=== PATIENT | male | born 1935 | race Caucasian/White ===

== ENCOUNTER 2016-03-24 10:02 | Inpatient (IN) | payer MEDICARE ==
[2016-03-24] VITALS (11 sets, daily range): BP systolic 115–151; BP diastolic 55–86; PULSE 70–94; RESP 7–12; TEMP 97.6–98.2; O2SAT 94–100
[~2016-03-24 10:02] MED LIST: NOREPINEPHRINE 4 MG/4 ML AMP IV ONE
[2016-03-24] MEDS ORDERED: ROCURONIUM INJ 50 MG/5 ML VIAL ONE (10:22)
[2016-03-24 10:25] LABS: I-STAT POTASSIUM 3.9 MMOL/L (3.5-4.9)
[2016-03-24 10:27] LABS: AUTOMATED NEUTROPHIL # 3.4 TH/MM3 (1.8-7.7); BASOPHIL % 0.5 % (0.0-2.0); EOSINOPHIL # 0.2 TH/MM3 (0-0.4); HEMATOCRIT 35.5 % (39.0-51.0); HEMO FLAGS DIFF FINAL; LYMPH % 37.2 % (9.0-44.0); LYMPHOCYTE # 2.5 TH/MM3 (1.0-4.8); MEAN CELL VOLUME 91.1 FL (80.0-100.0); MEAN CORPUSCULAR HEMOGLOBIN 30.7 PG (27.0-34.0); MEAN CORPUSCULAR HGB CONC 33.7 % (32.0-36.0); MONO % 9.7 % (0.0-8.0); NEUT % 49.6 % (16.0-70.0); PLATELET COUNT 163 TH/MM3 (150-450); RED CELL DISTRIBUTION WIDTH 13.1 % (11.6-17.2); WHITE BLOOD COUNT 6.8 TH/MM3 (4.0-11.0)
[2016-03-24] MEDS ORDERED: SODIUM CHLOR 0.9% 250 ML INJ 250 ML IV ONE (10:30)
[2016-03-24] MEDS ORDERED: NORMOSOL R INJ 3,000 ML IV ONE (10:30)
[2016-03-24] MEDS ORDERED: SODIUM BICARBONATE 8.4% INJ 50 MEQ/50 ML SYR IV ONE (10:30)
[2016-03-24] MEDS ORDERED: CALCIUM CHLORIDE 10% SOLN 1 GRAM/10 ML SYR IV ONE (10:30)
[2016-03-24] MEDS ORDERED: HEPARIN SODIUM - IV 10,000 UNITS/10 ML VIAL IVF ONE (10:30)
[2016-03-24] MEDS ORDERED: PHENYLEPH/NS 1000 MCG/10 ML SYR IV ONE (10:30)
[2016-03-24] MEDS ORDERED: SODIUM CHLOR 0.9% 1000 ML INJ 1,000 ML IV ONE (10:30)
--- NOTE | 2016-03-24 10:39 | RADRPT ---
EXAM DATE/TIME: 03/24/2016 10:00 [facility] COMPARISON: No previous studies available for comparison. INDICATIONS : trauma alert, fall while moving a mirror. MEDICAL HISTORY : None. SURGICAL HISTORY : None. ENCOUNTER: Initial ACUITY: 1 day PAIN SCORE: Non-responsive. LOCATION: Right pelvis. FINDINGS: A single frontal view of the pelvis demonstrates no evidence of fracture. Motion artifact limits the exam. Single view of the right femur and hip demonstrate no evidence of fracture. The bony pelvic ri ng is intact. Bony mineralization is normal. The soft tissues are intact. CONCLUSION: No fracture visualized. The frontal view of the pelvis is limited with motion artifact.. Val Wallace MD on March 24, 2016 at 10:36 Board Certified Radiologist. This report was verified electronically.
--- NOTE | 2016-03-24 10:39 | RADRPT ---
EXAM DATE/TIME: 03/24/2016 10:00 [facility] COMPARISON: No previous studies available for comparison. INDICATIONS : Trauma alert, fall when moving a mirror. MEDICAL HISTORY : None. SURGICAL HISTORY : None. ENCOUNTER: Initial ACUITY: 1 day PAIN SCORE: Non-responsive. LOCATION: Bilateral chest FINDINGS: A single view of the chest demonstrates the lungs to be symmetrically aerated without evidence of mas s, infiltrate or effusion. The cardiomediastinal contours are unremarkable. Osseous structures are intact. CONCLUSION: No acute disease. Val Wallace MD on March 24, 2016 at 10:38 Board Certified Radiologist. This report was verified electronically.
--- NOTE | 2016-03-24 10:44 | RADRPT ---
EXAM DATE/TIME: 03/24/2016 10:15 [facility] COMPARISON: None. INDICATIONS : Trauma alert. Post intubation. MEDICAL HISTORY : None. SURGICAL HISTORY : None. ENCOUNTER: Initial ACUITY: 1 day PAIN SCORE: Non-responsive. LOCATION: Bilateral chest FINDINGS: The endotracheal tube has its tip approximately 2 cm above the maxx. The heart is mildly prominent. The pulmonary vascular pattern is normal. The lungs are clear. CONCLUSION: Endotracheal tube 2 cm above the maxx in good position. Cardiomegaly. No acute focal pulmonary infi ltrate or pulmonary vascular congestion. Jose Polanco MD on March 24, 2016 at 10:41 Board Certified Radiologist. This report was verified electronically.
[2016-03-24 10:54] LABS: APTT (PATIENT) 23.9 SEC (24.3-30.1); INTERNATIONAL NORMALIZED RATIO 1.1 RATIO; PROTHROMBIN TIME - PATIENT 11.7 SEC (9.8-11.6)
--- NOTE | 2016-03-24 11:01 | RADRPT ---
EXAM DATE/TIME: 03/24/2016 00:00 [facility] COMPARISON: No previous studies available for comparison. INDICATIONS: Trauma alert. Right femur laceration from glass mirror. MEDICAL HISTORY: None. SURGICAL HISTORY: None. ENCOUNTER: Initial ACUITY: 1 day PAIN SCORE: Non-responsive. LOCATION: Right proximal femur. FINDINGS: No acute fracture or dislocation. Mild degenerative changes are noted involving the right hip joint. CONCLUSION: 1. No acute fracture or dislocation. 2. Mild degenerative changes involving the right hip joint. Jose Polanco MD on March 24, 2016 at 10:43 Board Certified Radiologist. This report was verified electronically.
[2016-03-24 11:07] LABS: BLOOD GAS BASE EXCESS -12.5 mmol/L (-2-2); BLOOD GAS CARBOXYHEMOGLOBIN 0.6 % (0-4); BLOOD GAS HCO3 16 mmol/L (22-26); BLOOD GAS METHEMOGLOBIN 1.1 % (0-2); BLOOD GAS O2 HGB SATURATION 97 % (90-100); BLOOD GAS PCO2 57 mmHg (38-42); BLOOD GAS PO2 237 mmHg (61-120); BLOOD GAS TOTAL HGB 13.5 G/DL (12.0-16.0); TEMP CORR TO 98.6
[2016-03-24 11:08] LABS: CRITICAL VALUE YES; OXYGEN DEVICE VENTILATOR
[2016-03-24 11:09] LABS: DRAW SITE ART LINE; FIO2 100 %; STAT YES
--- NOTE | 2016-03-24 11:12 | PD ---
HPI Chief Complaint: Trauma (Alert) Time Seen by Provider: 10:33 Travel History International Travel<30 days: No Contact w/Intl Traveler<30days: No Traveled to known affect area: No History of Present Illness HPI 88-year-old male presents to the ER as a trauma alert, apparently had fallen on an old mirror, has a laceration to his right thigh area with about a liter of blood on the floor according to EMS. His initial blood pressure was 50/30, they gave him IV fluids and put a tourniquet, and his blood pressure came up to 120 systolic according to them. He is awake, alert, and oriented on initial arrival to the ER. He was able to give us a history. Massive transfusion protocol was initiated when the patient got into the ER. However, while being evaluated in the trauma room, the patient becomes disoriented and then unresponsive, pulses were not felt, and CPR was initiated in the ER with one dose of epi and after one round returns to spontaneous circulation. Patient was intubated by me in the ER. He is then taken to the OR by trauma surgeon. Review of Systems ROS Limitations: Intubated, Altered Mental Status Physical Exam Narrative GENERAL: Well-nourished, well-developed elderly white male patient who is cool and clammy, but initially awake and oriented and GCS 15. SKIN: Warm and dry. HEAD: Normocephalic. EYES: No scleral icterus. No injection or drainage. NECK: Supple, trachea midline. CARDIOVASCULAR: . Regular rate and rhythm without murmurs, gallops, or rubs. RESPIRATORY: Breath sounds equal bilaterally with mild intermittent wheezes. No accessory muscle use. GASTROINTESTINAL: Abdomen soft, non-tender, nondistended. MUSCULOSKELETAL: No cyanosis, or edema. BACK: Nontender without obvious deformity. No CVA tenderness. Right leg: There is a 3 cm laceration which is fairly deep with bleeding once tourniquet was removed. Pulses are present. Data Data Orders I-Stat Profile (03/24/16 10:04) I-Stat Creatinine (03/24/16 10:04) Complete Blood Count With Diff (03/24/16 10:04) Prothrombin Time / Inr (Pt) (03/24/16 10:04) Act Partial Throm Time (Ptt) (03/24/16 10:04) Type And Screen (03/24/16 10:04) Chest, Single Ap (03/24/16 10:04) Pelvis, Ap Only (Routine) (03/24/16 10:04) Iv Access Insert/Monitor (03/24/16 10:04) Ecg Monitoring (03/24/16 10:04) Oximetry (03/24/16 10:04) Oxygen Administration (03/24/16 10:04) Rocuronium Inj (Zemuron Inj) (03/24/16 10:22) Red Blood Cells (Rbc) (03/24/16 10:10) Fentanyl Inj (Fentanyl Inj) (03/24/16 10:27) Fresh Frozen Plasma (Ffp) (03/24/16 10:27) Admit Order (Ed Use Only) (03/24/16 10:33) Red Blood Cells (Rbc) (03/24/16 10:10) Labs Laboratory Tests Test 03/24/16 10:10 White Blood Count 6.8 TH/MM3 Red Blood Count 3.90 MIL/MM3 Hemoglobin 12.0 GM/DL Bedside Hemoglobin 11.2 G/DL Hematocrit 35.5 % Bedside Hematocrit 33.0 % Mean Corpuscular Volume 91.1 FL Mean Corpuscular Hemoglobin 30.7 PG Mean Corpuscular Hemoglobin 33.7 % Concent Red Cell Distribution Width 13.1 % Platelet Count 163 TH/MM3 Mean Platelet Volume 8.0 FL Neutrophils (%) (Auto) 49.6 % Lymphocytes (%) (Auto) 37.2 % Monocytes (%) (Auto) 9.7 % Eosinophils (%) (Auto) 3.0 % Basophils (%) (Auto) 0.5 % Neutrophils # (Auto) 3.4 TH/MM3 Lymphocytes # (Auto) 2.5 TH/MM3 Monocytes # (Auto) 0.7 TH/MM3 Eosinophils # (Auto) 0.2 TH/MM3 Basophils # (Auto) 0.0 TH/MM3 CBC Comment DIFF FINAL Differential Comment Prothrombin Time 11.7 SEC Prothromb Time International 1.1 RATIO Ratio Activated Partial 23.9 SEC Thromboplast Time Bedside Sodium 142 MMOL/L Bedside Potassium 3.9 MMOL/L Bedside Chloride 109 MMOL/L Bedside Blood Urea Nitrogen 24 MG/DL Bedside Creatinine 1.2 MG/DL Bedside Glucose 182 MG/DL Blood Type B NEGATIVE Antibody Screen NEGATIVE Crossmatch Leukocyte-Reduced Red Blood Cells Blood Bank Comment MDM Medical Screen Exam Complete: Yes Emergency Medical Condition: Yes Medical Record Reviewed: Yes EKG Prior to Arrival: No Interpretation(s) Laboratory Tests Test 03/24/16 10:10 Red Blood Count 3.90 MIL/MM3 (4.50-5.90) Hemoglobin 12.0 GM/DL (13.0-17.0) Bedside Hemoglobin 11.2 G/DL (12.0-17.0) Hematocrit 35.5 % (39.0-51.0) Bedside Hematocrit 33.0 % (38.0-51.0) Monocytes (%) (Auto) 9.7 % (0.0-8.0) Prothrombin Time 11.7 SEC (9.8-11.6) Activated Partial 23.9 SEC Thromboplast Time (24.3-30.1) Bedside Glucose 182 MG/DL (60-95) Last 24 hours Impressions Pelvis X-Ray 03/24/16 1004 Signed Impressions: Service Date/Time: Thursday, March 24, 2016 10:00 - CONCLUSION: No fracture visualized. The frontal view of the pelvis is limited with motion artifact.. Val Wallace MD Chest X-Ray 03/24/16 1004 Signed Impressions: Service Date/Time: Thursday, March 24, 2016 10:00 - CONCLUSION: No acute disease. Val Wallace MD Chest X-Ray 03/24/16 0000 Signed Impressions: Service Date/Time: Thursday, March 24, 2016 10:15 - CONCLUSION: Endotracheal tube 2 cm above the maxx in good position. Cardiomegaly. No acute focal pulmonary infiltrate or pulmonary vascular congestion. Jose Polanco MD Differential Diagnosis Trauma/severe right leg laceration/PEA code/hypovolemic shock Narrative Course Patient is admitted to trauma service to the ICU, taken to the OR by trauma surgeon. Procedures Procedure Narrative The patient was put in optimal position for the procedure. Rapid sequence intubation was initiated by me using 20 milligrams of etomidate IV and 100 milligrams of succinylcholine] IV. The patient was intubated with a 8.0 cuffed endotracheal tube. Tube placement was confirmed by visualization of the tube and balloon passing through the cords, capnometry and subsequent chest x-ray. Breath sounds were equal and well aerated bilaterally postintubation. No breath sounds over stomach. Patient tolerated procedure well. Trauma Alert - Level One Trauma Alert Level One: Full trauma team activate, Patient evaluated, Trauma surgeon summoned Time Surgeon Summoned: 09:28 (Surgeon asked to come in) Diagnosis Diagnosis: Primary Impression: LACERATION WITHOUT FOREIGN BODY, RIGHT THIGH, INIT ENCNTR Additional Impression: Endotracheally intubated Admitting Physician Requests: Admit Stefan Osman MD Mar 24, 2016 11:12
[2016-03-24 11:27] LABS: BLOOD GAS BASE EXCESS -4.7 mmol/L (-2-2); BLOOD GAS CARBOXYHEMOGLOBIN 1.3 % (0-4); BLOOD GAS HCO3 20 mmol/L (22-26); BLOOD GAS METHEMOGLOBIN 1.2 % (0-2); BLOOD GAS O2 HGB SATURATION 97 % (90-100); BLOOD GAS PCO2 39 mmHg (38-42); BLOOD GAS PO2 283 mmHg (61-120); CRITICAL VALUE NO; OXYGEN DEVICE VENTILATOR; TEMP CORR TO 98.6
[2016-03-24 11:28] LABS: DRAW SITE ART LINE; FIO2 100 %; STAT YES
[2016-03-24 12:23] LABS: BLOOD GAS BASE EXCESS -0.3 mmol/L (-2-2); BLOOD GAS CARBOXYHEMOGLOBIN 1.4 % (0-4); BLOOD GAS HCO3 24 mmol/L (22-26); BLOOD GAS METHEMOGLOBIN 1.2 % (0-2); BLOOD GAS O2 HGB SATURATION 97 % (90-100); BLOOD GAS OXYGEN CONTENT 15.1 Vol % (12.0-20.0); BLOOD GAS PCO2 44 mmHg (38-42); BLOOD GAS PO2 270 mmHg (61-120); BLOOD GAS TOTAL HGB 10.6 G/DL (12.0-16.0); CRITICAL VALUE NO; OXYGEN DEVICE VENTILATOR; TEMP CORR TO 98.6
[2016-03-24 12:24] LABS: DRAW SITE ART LINE; FIO2 100 %; STAT YES
[2016-03-24] MEDS ORDERED: MISCELLANEOUS NURSING INFORMATION XX SCH (12:30)
[2016-03-24] MEDS ORDERED: CHLORHEXIDINE GLUCONATE 2 % 1 PACK (2 CLOTHS) TOP PRN (12:30)
[2016-03-24] MEDS ORDERED: fentaNYL DRIP 250 ML IV SCH (12:30)
[2016-03-24] MEDS ORDERED: SODIUM CHLORIDE 0.9% FLUSH 5 ML FLUSH IV FLUSH PRN (12:30)
--- NOTE | 2016-03-24 12:55 | HHI.HP ---
History of Present Illness Primary Care Physician Admission Diagnosis trauma alert/right leg severe lacerations/severe anemia Diagnoses: History of Present Illness 88 -year-old male fell on a broken mirror sustained an open wound of his right thigh. There was large amount of bleeding according to EMS about 1 L. She was hypotensive at the scene responded to go to IV fluids. He presented to the trauma bay awake alert= the initial stable blood pressure. Rapid transfusion was started , patient started becoming labile orotracheal intubation was started. Patient had a short code required 1 Amp epinephrine and short CPR. Patient was then stabilized with massive transfusion ongoing-and brought to the OR vascular exploration. Review of Systems ROS Limitations: Intubated, Altered Mental Status, Unresponsive Past Family Social History Allergies: Coded Allergies: UNOBTAINABLE (Unverified , 03/24/16) Past Medical History Cannot be obtained Past Surgical History Cannot be obtained Reported Medications Cannot be obtained Active Ordered Medications Cannot be obtained Family History Not be obtained Social History Not be obtained Physical Exam Vital Signs Vital Signs Date Time Temp Pulse Resp B/P Pulse Ox O2 Delivery O2 Flow Rate FiO2 03/24/16 10:47 100 100 Physical Exam GENERAL: This is a well-nourished, well-developed patient, in severe distress SKIN: No rashes, ecchymoses or lesions. Cool and dry. HEAD: Atraumatic. Normocephalic. No temporal or scalp tenderness. EYES: Pupils equal round and reactive. Extraocular motions intact. No scleral icterus. No injection or drainage. ENT: Nose without bleeding, purulent drainage or septal hematoma. Throat without erythema, tonsillar hypertrophy or exudate. Uvula midline. Airway patent. NECK: Trachea midline. No JVD or lymphadenopathy. Supple, nontender, no meningeal signs. CARDIOVASCULAR: Regular rate and rhythm without murmurs, gallops, or rubs. RESPIRATORY: Clear to auscultation. Breath sounds equal bilaterally. No wheezes , rales, or rhonchi. GASTROINTESTINAL: Abdomen soft, non-tender, nondistended. No hepato-splenomegaly , or palpable masses. No guarding. MUSCULOSKELETAL: b/l DP pulses palpable-right thigh midportion large wound size 85 cm with heavy bleeding NEUROLOGICAL: Awake and alert. Cranial nerves II through XII intact. Motor and sensory grossly within normal limits. Five out of 5 muscle strength in all muscle groups. Normal speech. Laboratory Laboratory Tests Test 03/24/16 03/24/16 03/24/16 03/24/16 10:10 10:27 10:57 11:17 White Blood Count 6.8 Red Blood Count 3.90 Hemoglobin 12.0 Bedside Hemoglobin 11.2 Hematocrit 35.5 Bedside Hematocrit 33.0 Mean Corpuscular Volume 91.1 Mean Corpuscular Hemoglobin 30.7 Mean Corpuscular Hemoglobin 33.7 Concent Red Cell Distribution Width 13.1 Platelet Count 163 Mean Platelet Volume 8.0 Neutrophils (%) (Auto) 49.6 Lymphocytes (%) (Auto) 37.2 Monocytes (%) (Auto) 9.7 Eosinophils (%) (Auto) 3.0 Basophils (%) (Auto) 0.5 Neutrophils # (Auto) 3.4 Lymphocytes # (Auto) 2.5 Monocytes # (Auto) 0.7 Eosinophils # (Auto) 0.2 Basophils # (Auto) 0.0 CBC Comment DIFF FINAL Differential Comment Prothrombin Time 11.7 Prothromb Time International 1.1 Ratio Activated Partial 23.9 Thromboplast Time Bedside Sodium 142 Bedside Potassium 3.9 Bedside Chloride 109 Bedside Blood Urea Nitrogen 24 Bedside Creatinine 1.2 Bedside Glucose 182 Blood Type B NEGATIVE Antibody Screen NEGATIVE Crossmatch Leukocyte-Reduced Red Blood Cells Blood Bank Comment Blood Gas Puncture Site ART LINE ART LINE Blood Gas Patient Temperature 98.6 98.6 Blood Gas HCO3 16 20 Blood Gas Base Excess -12.5 -4.7 Blood Gas Oxygen Saturation 97 97 Arterial Blood pH 7.08 7.33 Arterial Blood Partial 57 39 Pressure CO2 Arterial Blood Partial 237 283 Pressure O2 Arterial Blood Oxygen Content 19.0 13.0 Arterial Blood 0.6 1.3 Carboxyhemoglobin Arterial Blood Methemoglobin 1.1 1.2 Blood Gas Hemoglobin 13.5 9.0 Oxygen Delivery Device VENTILATOR VENTILATOR Blood Gas Ventilator Setting UNKNOWN UNKNOWN Blood Gas Inspired Oxygen 100 100 Test 03/24/16 12:13 Blood Gas Puncture Site ART LINE Blood Gas Patient Temperature 98.6 Blood Gas HCO3 24 Blood Gas Base Excess -0.3 Blood Gas Oxygen Saturation 97 Arterial Blood pH 7.36 Arterial Blood Partial 44 Pressure CO2 Arterial Blood Partial 270 Pressure O2 Arterial Blood Oxygen Content 15.1 Arterial Blood 1.4 Carboxyhemoglobin Arterial Blood Methemoglobin 1.2 Blood Gas Hemoglobin 10.6 Oxygen Delivery Device VENTILATOR Blood Gas Ventilator Setting UNKNOWN Blood Gas Inspired Oxygen 100 Result Diagram: 03/24/16 1010 Imaging No femur fracture-femur xray Course hemorrhagic shock Assessment and Plan Assessment and Plan Hemorrhagic shock Large open wound with heavy bleeding right thigh Orotracheal intubation Massive transfusion Tourniquet Or for exploration Reva Bess MD Mar 24, 2016 12:55
[2016-03-24] MEDS: PROPOFOL 1000 MG/100 ML INJ 100 ML IV SCH ×2 (13:30→21:55)
[2016-03-24] MEDS: SODIUM CHLOR 0.9% 1000 ML INJ 1,000 ML IV SCH ×2 (13:30→22:51)
--- NOTE | 2016-03-24 13:32 | RADRPT ---
EXAM DATE/TIME: 03/24/2016 11:58 [facility] COMPARISON: CHEST SINGLE AP, March 24, 2016, 10:15. INDICATIONS : Instrument count in OR. MEDICAL HISTORY : None. SURGICAL HISTORY : None. ENCOUNTER: Initial ACUITY: 1 day PAIN SCORE: Non-responsive. LOCATION: Right middle femur FINDINGS: One view examination of the right femur demonstrates no evidence of fracture or dislocation. Bony mi neralization is normal. There is a drain overlying the right femur. No evidence of for change or body . Surgical clips within the medial soft tissues. CONCLUSION: No evidence of retained foreign body. Surgical drain overlying the right thigh. Val Wallace MD on March 24, 2016 at 13:30 Board Certified Radiologist. This report was verified electronically.
[2016-03-24] MEDS ORDERED: MIDAZOLAM HCL 2 MG/2 ML VIAL ONE (13:33)
[2016-03-24 13:46] LABS: BLOOD GAS BASE EXCESS -1.5 mmol/L (-2-2); BLOOD GAS CARBOXYHEMOGLOBIN 1.1 % (0-4); BLOOD GAS HCO3 22 mmol/L (22-26); BLOOD GAS METHEMOGLOBIN 1.9 % (0-2); BLOOD GAS O2 HGB SATURATION 95 % (90-100); BLOOD GAS OXYGEN CONTENT 14.3 Vol % (12.0-20.0); BLOOD GAS PCO2 35 mmHg (38-42); BLOOD GAS PO2 166 mmHg (61-120); BLOOD GAS TOTAL HGB 10.5 G/DL (12.0-16.0); CRITICAL VALUE NO; DRAW SITE ART LINE; FIO2 40 %; OXYGEN DEVICE VENTILATOR; STAT YES; TEMP CORR TO 98.6; VENT SETTINGS CPAP +5PPEP/10PSV
--- NOTE | 2016-03-24 13:52 | RADRPT ---
EXAM DATE/TIME: 03/24/2016 13:28 [facility] COMPARISON: CHEST SINGLE AP, March 24, 2016, 10:15. FEMUR RIGHT (1 VW), March 24, 2016, 11:58. INDICATIONS : Central line placement. MEDICAL HISTORY : None. SURGICAL HISTORY : None. ENCOUNTER: Initial ACUITY: 1 day PAIN SCORE: Non-responsive. LOCATION: Bilateral chest FINDINGS: AP supine portable views of the chest demonstrate endotracheal tube with the tip at the level of the clavicles, approximately 5.6 cm above the level of the maxx. Gastric tubing extending to just below the level of the GE junction. Recommend interval advancement. The lungs are clear. Heart size is normal. Osseous structures appear grossly unremarkable. CONCLUSION: Lines and tubes as noted above. Lungs are clear without evidence of pneumothorax.. Val Wallace MD on March 24, 2016 at 13:49 Board Certified Radiologist. This report was verified electronically.
[2016-03-24] MEDS ORDERED: DO NOT ADM ANY ANTICOAGULANT DRUGS XX PRN (14:00)
[2016-03-24 17:45] LABS: BLOOD GAS BASE EXCESS 0.3 mmol/L (-2-2); BLOOD GAS CARBOXYHEMOGLOBIN 1.8 % (0-4); BLOOD GAS HCO3 23 mmol/L (22-26); BLOOD GAS METHEMOGLOBIN 0.9 % (0-2); BLOOD GAS O2 HGB SATURATION 95 % (90-100); BLOOD GAS OXYGEN CONTENT 14.4 Vol % (12.0-20.0); BLOOD GAS PCO2 32 mmHg (38-42); BLOOD GAS PO2 83 mmHg (61-120); BLOOD GAS TOTAL HGB 10.8 G/DL (12.0-16.0); CRITICAL VALUE NO; DRAW SITE LT BRACHIAL; FIO2 21 %; NUMBER OF ARTERIAL PUNCTURES 1; OXYGEN DEVICE ROOM AIR; STAT NO; TEMP CORR TO 98.6
[2016-03-24] MEDS: CLINDAMYCIN INJ 600 MG in SODIUM CHLORIDE 0.9% INJ 100 ML IV SCH (20:00)
[2016-03-24] MEDS: SODIUM CHLORIDE 0.9% FLUSH 5 ML FLUSH IV FLUSH SCH (21:00)
[2016-03-24] MEDS: FAMOTIDINE 20 MG/2 ML VIAL IV PUSH SCH (21:00)
[2016-03-24 23:20] LABS: HEMATOCRIT 31.5 % (39.0-51.0)
[2016-03-24 23:21] LABS: REVIEW FLAG FINAL
--- NOTE | 2016-03-24 23:36 | PD.CONS ---
HPI Service Critical Care Medicine Consult Requested By Trauma Service Reason for Consult Respiratory Failure Primary Care Physician History of Present Illness Elderly man fell on mirror receiving severe laceration to his right superficial femoral vein and artery branches. He required a massive transfusion protocol, receiving 9 units PRBCs, 6 FFP, and commensurate amounts of cryoprecipitate and platelets. Unable to wean ventilator postoperatively as he has been resuscitated from the shock state. He arrived in profound shock and sustained a brief PEA arrest in ED from which he was rapidly resuscitated. Past Family Social History Allergies: Coded Allergies: UNOBTAINABLE (Unverified , 03/24/16) Physical Exam Vital Signs Vital Signs Date Time Temp Pulse Resp B/P Pulse Ox O2 Delivery O2 Flow Rate FiO2 03/24/16 20:28 99 40 03/24/16 18:00 100 Mechanical Ventilator 40 03/24/16 18:00 03/24/16 18:00 70 03/24/16 16:21 100 40 03/24/16 16:00 97.6 80 12 119/58 100 03/24/16 16:00 100 Mechanical Ventilator 40 03/24/16 16:00 80 03/24/16 14:37 98 40 03/24/16 14:30 100 Mechanical Ventilator 40 03/24/16 14:30 100 100 03/24/16 14:30 97.6 82 7 151/86 100 03/24/16 14:30 94 03/24/16 14:00 97.4 90 6 135/72 99 Mechanical Ventilator 03/24/16 13:45 92 8 146/62 98 Mechanical Ventilator 03/24/16 13:30 89 6 116/70 99 Mechanical Ventilator 03/24/16 13:15 90 6 106/68 99 Mechanical Ventilator 03/24/16 13:05 96.3 91 6 91/55 96 Ambu Bag 03/24/16 13:00 94 40 03/24/16 10:47 100 100 Physical Exam PE: Gen: Sedated on mechanical ventilation. Head: Laceration to bridge of nose, dry, clean. Neck: Supple, orally intubated. Lungs: Few scattered rhonchi, good cesario air entry. Heart: NL S1S2, RRR. No JVD. Abdomen: Benign, sift. BS active. Nondistended. Extremities: Dry dressing right thigh. Right foot is warm and toes are well perfused. 1+ edema. Other 3 limbs well perfused. Neuro: Opens eyes to loud voice.Moves 4 limbs spontaneously. Laboratory Laboratory Tests Test 03/24/16 03/24/16 03/24/16 03/24/16 09:40 10:10 10:27 10:57 Blood Bank Comment White Blood Count 6.8 Red Blood Count 3.90 Hemoglobin 12.0 Bedside Hemoglobin 11.2 Hematocrit 35.5 Bedside Hematocrit 33.0 Mean Corpuscular Volume 91.1 Mean Corpuscular Hemoglobin 30.7 Mean Corpuscular Hemoglobin 33.7 Concent Red Cell Distribution Width 13.1 Platelet Count 163 Mean Platelet Volume 8.0 Neutrophils (%) (Auto) 49.6 Lymphocytes (%) (Auto) 37.2 Monocytes (%) (Auto) 9.7 Eosinophils (%) (Auto) 3.0 Basophils (%) (Auto) 0.5 Neutrophils # (Auto) 3.4 Lymphocytes # (Auto) 2.5 Monocytes # (Auto) 0.7 Eosinophils # (Auto) 0.2 Basophils # (Auto) 0.0 CBC Comment DIFF FINAL Differential Comment Prothrombin Time 11.7 Prothromb Time International 1.1 Ratio Activated Partial 23.9 Thromboplast Time Bedside Sodium 142 Bedside Potassium 3.9 Bedside Chloride 109 Bedside Blood Urea Nitrogen 24 Bedside Creatinine 1.2 Bedside Glucose 182 Blood Type B NEGATIVE Antibody Screen NEGATIVE Crossmatch Leukocyte-Reduced Red Blood Cells Blood Gas Puncture Site ART LINE Blood Gas Patient Temperature 98.6 Blood Gas HCO3 16 Blood Gas Base Excess -12.5 Blood Gas Oxygen Saturation 97 Arterial Blood pH 7.08 Arterial Blood Partial 57 Pressure CO2 Arterial Blood Partial 237 Pressure O2 Arterial Blood Oxygen Content 19.0 Arterial Blood 0.6 Carboxyhemoglobin Arterial Blood Methemoglobin 1.1 Blood Gas Hemoglobin 13.5 Oxygen Delivery Device VENTILATOR Blood Gas Ventilator Setting UNKNOWN Blood Gas Inspired Oxygen 100 Test 03/24/16 03/24/16 03/24/16 03/24/16 11:17 12:13 13:36 17:35 Blood Gas Puncture Site ART LINE ART LINE ART LINE LT BRACHIAL Blood Gas Patient Temperature 98.6 98.6 98.6 98.6 Blood Gas HCO3 20 24 22 23 Blood Gas Base Excess -4.7 -0.3 -1.5 0.3 Blood Gas Oxygen Saturation 97 97 95 95 Arterial Blood pH 7.33 7.36 7.42 7.48 Arterial Blood Partial 39 44 35 32 Pressure CO2 Arterial Blood Partial 283 270 166 83 Pressure O2 Arterial Blood Oxygen Content 13.0 15.1 14.3 14.4 Arterial Blood 1.3 1.4 1.1 1.8 Carboxyhemoglobin Arterial Blood Methemoglobin 1.2 1.2 1.9 0.9 Blood Gas Hemoglobin 9.0 10.6 10.5 10.8 Oxygen Delivery Device VENTILATOR VENTILATOR VENTILATOR ROOM AIR Blood Gas Ventilator Setting UNKNOWN UNKNOWN CPAP +5PPEP/10PSV Blood Gas Inspired Oxygen 100 100 40 21 Test 03/24/16 03/24/16 17:38 23:10 Nasal Screen MRSA (PCR) NEGATIVE Hemoglobin 11.2 Hematocrit 31.5 Result Diagram: 03/24/16 2310 Assessment and Plan Problem List: (1) Acute respiratory failure ICD Code: J96.00 Status: Acute (2) Hypovolemic shock ICD Code: R57.1 Status: Acute (3) Cardiac arrest ICD Code: I46.9 Status: Acute (4) Anemia associated with acute blood loss ICD Code: D62 Status: Acute (5) Traumatic injury of right lower extremity ICD Code: S89.91XA Status: Acute Assessment and Plan PLAN: RESP: PRVC vent mode, a.m. CXR. Duonebs. PS trials when approved by surgeons. CV: EKG, cardiac markers. NEURO: Light sedation/analgesia tonight, off in a.m. RENAL: Electrolyte protocol. GI: NG to LIS. : Leola for hourly output tonight. HEME: Hgb X 1. ID: Cultures for fevers. END: SSI prn only. PX: Protonix, DVT per surgeons. Overall impression: Elderly man resuscitated from the shock state after near exsanguination from vascular injury right thigh. Anticipate diffusion capacity of lungs will be hampered by massive transfusions and shock state. Stable hemodynamics now, will assess for extubation after 12-24 hours. Jerry Avitia MD Mar 24, 2016 23:36
[2016-03-25] VITALS (17 sets, daily range): BP systolic 114–146; BP diastolic 53–70; PULSE 67–109; RESP 12–23; TEMP 98.7–100.8; O2SAT 93–100
[2016-03-25] LABS: BICARBONATE 29.3 MEQ/L (21.0-32.0); POTASSIUM 3.4 MEQ/L (3.5-5.1)
[2016-03-25 00:21] LABS: CALCIUM-PROTEIN CORRECTED 7.9 MG/DL (8.5-10.1)
[2016-03-25] MEDS: CHLORHEXIDINE GLUCONATE 2 % 1 PACK (2 CLOTHS) TOP SCH (04:00)
[2016-03-25] MEDS: CLINDAMYCIN INJ 600 MG in SODIUM CHLORIDE 0.9% INJ 100 ML IV SCH ×2 (04:21→12:19)
[2016-03-25 04:29] LABS: AUTOMATED NEUTROPHIL # 7.3 TH/MM3 (1.8-7.7); BASOPHIL % 0.3 % (0.0-2.0); EOSINOPHIL # 0.1 TH/MM3 (0-0.4); EOSINOPHIL % 0.9 % (0.0-4.0); HEMATOCRIT 32.5 % (39.0-51.0); LYMPH % 6.8 % (9.0-44.0); LYMPHOCYTE # 0.6 TH/MM3 (1.0-4.8); MEAN CELL VOLUME 86.9 FL (80.0-100.0); MEAN CORPUSCULAR HEMOGLOBIN 29.6 PG (27.0-34.0); MONO % 9.5 % (0.0-8.0); NEUT % 82.5 % (16.0-70.0); PLATELET COUNT 95 TH/MM3 (150-450); RED BLOOD COUNT 3.74 MIL/MM3 (4.50-5.90); RED CELL DISTRIBUTION WIDTH 15.3 % (11.6-17.2); WHITE BLOOD COUNT 8.8 TH/MM3 (4.0-11.0)
[2016-03-25 04:37] LABS: PROTHROMBIN TIME - PATIENT 11.1 SEC (9.8-11.6)
[2016-03-25 04:43] LABS: HEMO FLAGS AUTO DIFF
[2016-03-25 05:11] LABS: BICARBONATE 27.4 MEQ/L (21.0-32.0); MAGNESIUM 1.8 MG/DL (1.5-2.5); POTASSIUM 3.5 MEQ/L (3.5-5.1)
[2016-03-25 05:35] LABS: CALCIUM-PROTEIN CORRECTED 7.8 MG/DL (8.5-10.1)
--- NOTE | 2016-03-25 05:36 | RADRPT ---
EXAM DATE/TIME: 03/25/2016 03:54 [facility] COMPARISON: CHEST SINGLE AP, March 24, 2016, 13:28. INDICATIONS : Trauma, chest pain MEDICAL HISTORY : Unknown SURGICAL HISTORY : Unknown ENCOUNTER: Subsequent ACUITY: 2 days PAIN SCORE: Non-responsive. LOCATION: Bilateral chest FINDINGS: A single view of the chest demonstrates discoid atelectasis left midlung without evidence of mass, in filtrate or effusion. Endotracheal tube, left subclavian sheath and nasogastric tube are stable in po sition. The cardiomediastinal contours are unremarkable. Osseous structures are intact. CONCLUSION: 1. Discoid atelectasis left midlung. 2. Support lines and tubes are stable. Indio Patiño MD on March 25, 2016 at 5:33 Board Certified Radiologist. This report was verified electronically.
[2016-03-25] MEDS ORDERED: RESP: ALBUTEROL 2.5 MG/IPRATROPIUM 0.5 MG NEB (PRN) NEB (07:45)
--- NOTE | 2016-03-25 07:47 | MP ---
cc: TOM CARVAJAL MD DATE OF SURGERY: 03/24/2016 PREOPERATIVE DIAGNOSIS Large laceration through the right thigh and massive hemorrhage, near exsanguinating shock. POSTOPERATIVE DIAGNOSIS Large laceration through the right thigh and massive hemorrhage, near exsanguinating shock, laceration and resection of branches of the superficial femoral artery and vein, transection of the adductor muscle and sartorius muscle. OPERATIVE PROCEDURE Right groin common femoral artery isolation and proximal control. Exploration of the right thigh laceration with ligation of branches of superficial femoral artery and superficial femoral vein drainage. SURGEON Dr. Carvajal [employer] SURGEON Dr. Bess ANESTHESIA General. ESTIMATED BLOOD LOSS 300 cc. INDICATION FOR PROCEDURE This 80-year-old gentleman was carrying some sort of a glass table that fell, broke and cut his leg through the thigh all the way down to the femur. The patient was brought to the emergency room in hemorrhagic shock, hypotensive, and then passed out. Question arose about cardiac arrest which probably did not occur but was close to it. The patient is taken to the operating room for repair. DETAILS OF PROCEDURE The patient is prepped and draped in usual fashion. Both legs are prepped into the field and the patient is prepped all the way up to the xiphoid. While pressure is held on the bleeding site the right groin is opened in an oblique fashion. The incision is deepened down to the common femoral artery and with sharp dissection this one is freed. A vessel loop is placed around the artery to gain proximal control. Now the laceration on the median thigh is attended and this one is sort of jagged and large, going very deep down and spewing blood. This one is extended distally about two inches and proximally about an inch and a half. This allows for good exposure. Very gradually the incision is now deepened with cautery and right angle and superficial femoral artery is finally encountered. This one is isolated, does not seem to be injured. The patient has a good distal dorsalis pedis and posterior tibial pulse on palpation. The DeBakey clamp is now completely released and the tissue is allowed to bleed. Several branches of the superficial femoral artery are now encountered, pulled off, and these are ligated with 2-0 Vicryl stick ties [id number]. Proximally on the superficial artery there is a branch that ripped off and this one is repaired with 5-0 Prolene [id number]. There are numerous venous branches that are bleeding and muscular branches that are bleeding. These are ligated with two Vicryl stick ties interrupted stitches [id number]. Finally when control of bleeding is complete, the area is irrigated with saline. A piece of Talent local coagulant is placed. A GE is now placed through a separate stab wound and inserted into the area. The incision is then closed in layers with 2-0 Vicryl and helga. The groin incision is irrigated, closed in layers with 2-0 Vicryl and 4-0 Monocryl. Benzoin and Steri-Strips applied. The patient tolerated the procedure well. Tom GARCIA/DIANA /4:59 PM /7:17 AM
[2016-03-25] MEDS: DOCUSATE SODIUM 100 MG CAP PO SCH ×2 (08:30→22:43)
[2016-03-25] MEDS: SODIUM CHLORIDE 0.9% FLUSH 5 ML FLUSH IV FLUSH SCH ×2 (08:31→22:43)
[2016-03-25] MEDS: FAMOTIDINE 20 MG/2 ML VIAL IV PUSH SCH ×2 (08:31→22:43)
[2016-03-25] MEDS: MAGNESIUM HYDROXIDE SUSP 30 ML CUP PO SCH (08:31)
[2016-03-25 08:46] LABS: BANDS 11 % (0-6); BASOPHILS 1 % (0-2); EOSINOPHILS 1 % (0-4); NEUTROPHIL # MANUAL DIFF 7.4 TH/MM3 (1.8-7.7); POLYS (SEG NEUTROPHILS) 73 % (16-70); WBC DIFF SAMPLE 100
[2016-03-25 08:47] LABS: PLATELET ESTIMATE SMEAR LOW (NORMAL); PLATELET MORPHOLOGY NORMAL (NORMAL); SCAN/DIFF FINAL DIFF MANUAL
[2016-03-25] MEDS ORDERED: DEXTROSE 50% IN WATER 50 ML VIAL(D50) IV PUSH PRN (09:30)
[2016-03-25] MEDS ORDERED: GLUCAGON 1 MG/ML VIAL OTHER PRN (09:30)
[2016-03-25] MEDS: INSULIN NovoLIN REGULAR SUPPLEMENTAL SCALE SQ SCH ×3 (11:00→21:00)
[2016-03-25] MEDS: SODIUM CHLOR 0.9% 1000 ML INJ 1,000 ML IV SCH ×2 (11:54→18:28)
--- NOTE | 2016-03-25 14:23 | HHI.CCPN ---
Subjective Brief History Patient fell on a glass table lacerated massively right leg with exsanguinating hemorrhage Transferred to our institution spurted 1 trauma alert Large laceration through the right thigh and massive hemorrhage, near exsanguinating shock. POSTOPERATIVE DIAGNOSIS Large laceration through the right thigh and massive hemorrhage, near exsanguinating shock, laceration and resection of branches of the superficial femoral artery and vein, transection of the adductor muscle and sartorius muscle. OPERATIVE PROCEDURE Right groin common femoral artery isolation and proximal control. Exploration of the right thigh laceration with ligation of branches of superficial femoral artery and superficial femoral vein drainage. 24 Hour Review/Hospital Course 03/25/16 Patient underwent yesterday extensive exploration of the common femoral superficial femoral arteries ligation of the number of branches of both and traumatic hemostasis Incision has been closed In face of large amount of blood and blood products patient was intubated and ventilated overnight and this morning has been weaned down and extubated He is awake alert and oriented Diet has been advanced to regular Patient to be transferred to the floor today and probably discharged on Wednesday Objective Vital Signs Date Time Temp Pulse Resp B/P Pulse Ox O2 Delivery O2 Flow Rate FiO2 03/25/16 12:00 98.9 93 16 146/70 96 03/25/16 10:20 Nasal Cannula 2.00 03/25/16 07:59 35 Intake and Output 03/24/16 03/24/16 03/25/16 08:00 16:00 00:00 Intake Total 7113 ml 1016 ml Output Total 2510 ml 600 ml Balance 4603 ml 416 ml Result Diagram: 03/25/16 0405 03/25/16 0405 Other Results Laboratory Tests Test 03/24/16 17:35 Blood Gas Puncture Site LT BRACHIAL Blood Gas Patient Temperature 98.6 Blood Gas HCO3 23 mmol/L (22-26) Blood Gas Base Excess 0.3 mmol/L (-2-2) Blood Gas Oxygen Saturation 95 % (90-100) Arterial Blood pH 7.48 (7.380-7.420) Arterial Blood Partial 32 mmHg (38-42) Pressure CO2 Arterial Blood Partial 83 mmHg Pressure O2 (61-120) Arterial Blood Oxygen Content 14.4 Vol % (12.0-20.0) Arterial Blood 1.8 % (0-4) Carboxyhemoglobin Arterial Blood Methemoglobin 0.9 % (0-2) Blood Gas Hemoglobin 10.8 G/DL (12.0-16.0) Oxygen Delivery Device ROOM AIR Blood Gas Inspired Oxygen 21 % Imaging Last 24 hours Impressions Chest X-Ray 03/25/16 0000 Signed Impressions: Service Date/Time: Friday, March 25, 2016 03:54 - CONCLUSION: 1. Discoid atelectasis left midlung. 2. Support lines and tubes are stable. Indio Patiño MD Assessment and Plan Attestation The exam, history, and the medical decision-making described in the above note were completed with the assistance of the mid-level provider. I reviewed and agree with the findings presented. I attest that I had a [id number] encounter with the patient on the same day, and personally performed and documented my assessment and findings in the medical record. Critical care time 35 minutes. Olive Lezama MD Mar 25, 2016 14:23
[2016-03-25] MEDS ORDERED: MORPHINE SULFATE 4 MG/ML INJ IV PUSH PRN (14:45)
[2016-03-25] MEDS ORDERED: oxyCODONE/ACETAMINOPHEN 5 MG/325 MG TAB PO PRN (14:45)
[2016-03-26] VITALS (11 sets, daily range): BP systolic 129–162; BP diastolic 59–83; PULSE 92–106; RESP 12–25; TEMP 97.6–98.4; O2SAT 96–100
[2016-03-26] MEDS: CHLORHEXIDINE GLUCONATE 2 % 1 PACK (2 CLOTHS) TOP SCH ×2 (04:00→20:41)
[2016-03-26] MEDS: SODIUM CHLOR 0.9% 1000 ML INJ 1,000 ML IV SCH (04:28)
[2016-03-26] MEDS: INSULIN NovoLIN REGULAR SUPPLEMENTAL SCALE SQ SCH ×4 (07:00→20:41)
[2016-03-26 07:13] LABS: HEMATOCRIT 31.7 % (39.0-51.0); MEAN CELL VOLUME 87.4 FL (80.0-100.0); MEAN CORPUSCULAR HEMOGLOBIN 29.8 PG (27.0-34.0); MEAN CORPUSCULAR HGB CONC 34.1 % (32.0-36.0); PLATELET COUNT 88 TH/MM3 (150-450); RED BLOOD COUNT 3.63 MIL/MM3 (4.50-5.90); WHITE BLOOD COUNT 8.5 TH/MM3 (4.0-11.0)
[2016-03-26 07:21] LABS: REVIEW FLAG FINAL
[2016-03-26 07:39] LABS: BICARBONATE 27.8 MEQ/L (21.0-32.0); POTASSIUM 3.5 MEQ/L (3.5-5.1)
[2016-03-26] MEDS: SODIUM CHLORIDE 0.9% FLUSH 5 ML FLUSH IV FLUSH SCH ×2 (09:00→20:39)
[2016-03-26] MEDS: MAGNESIUM HYDROXIDE SUSP 30 ML CUP PO SCH (09:00)
[2016-03-26] MEDS: DOCUSATE SODIUM 100 MG CAP PO SCH ×2 (09:00→20:41)
[2016-03-26] MEDS: FAMOTIDINE 20 MG/2 ML VIAL IV PUSH SCH (09:33)
[2016-03-26] MEDS ORDERED: WALKER WHEELS/F1 MIS (11:37)
--- NOTE | 2016-03-26 15:55 | HHI.CCPN ---
Subjective Brief History Patient fell on a glass table lacerated massively right leg with exsanguinating hemorrhage Transferred to our institution spurted 1 trauma alert Large laceration through the right thigh and massive hemorrhage, near exsanguinating shock. POSTOPERATIVE DIAGNOSIS Large laceration through the right thigh and massive hemorrhage, near exsanguinating shock, laceration and resection of branches of the superficial femoral artery and vein, transection of the adductor muscle and sartorius muscle. OPERATIVE PROCEDURE Right groin common femoral artery isolation and proximal control. Exploration of the right thigh laceration with ligation of branches of superficial femoral artery and superficial femoral vein drainage. 24 Hour Review/Hospital Course 03/25/16 Patient underwent yesterday extensive exploration of the common femoral superficial femoral arteries ligation of the number of branches of both and traumatic hemostasis Incision has been closed In face of large amount of blood and blood products patient was intubated and ventilated overnight and this morning has been weaned down and extubated He is awake alert and oriented Diet has been advanced to regular Patient to be transferred to the floor today and probably discharged on Wednesday03/26/16 Status post near transection of superficial femoral artery and vein Patient is excellent distal pulses with dopplerable posterior tibial and dorsalis pedis Foot is warm Incisions are clean and dry and patient will be transferred to floor Depends on the ability to ambulate with ease patient will be discharged either tomorrow or Wednesday Objective Vital Signs Date Time Temp Pulse Resp B/P Pulse Ox O2 Delivery O2 Flow Rate FiO2 03/26/16 14:00 101 03/26/16 12:00 98.0 25 158/74 100 03/26/16 07:36 Nasal Cannula 2.00 03/25/16 07:59 35 Intake and Output 03/25/16 03/25/16 03/26/16 08:00 16:00 00:00 Intake Total 1069 ml 1345 ml 393 ml Output Total 1085 ml 720 ml 820 ml Balance -16 ml 625 ml -427 ml Result Diagram: 03/26/16 0656 03/26/16 0656 Assessment and Plan Attestation The exam, history, and the medical decision-making described in the above note were completed with the assistance of the mid-level provider. I reviewed and agree with the findings presented. I attest that I had a [id number] encounter with the patient on the same day, and personally performed and documented my assessment and findings in the medical record. Critical care time 35 minutes. Olive Lezama MD Mar 26, 2016 15:55
[2016-03-26] MEDS: FAMOTIDINE 20 MG TAB PO SCH (20:39)
[2016-03-27 00:55] VITALS: BP 126/66; PULSE 117; RESP 18; TEMP 101.5; O2SAT 98
[2016-03-27] MEDS: ACETAMINOPHEN 325 MG TAB PO PRN ×2 (01:53→13:35)
[2016-03-27 04:43] VITALS: BP 115/57; PULSE 111; RESP 16; TEMP 100.8; O2SAT 94
[2016-03-27] MEDS: INSULIN NovoLIN REGULAR SUPPLEMENTAL SCALE SQ SCH ×2 (05:15→11:00)
[2016-03-27 08:28] VITALS: BP 133/69; PULSE 99; RESP 18; TEMP 100.4; O2SAT 96
[2016-03-27] MEDS: FAMOTIDINE 20 MG TAB PO SCH (08:44)
[2016-03-27] MEDS: DOCUSATE SODIUM 100 MG CAP PO SCH (08:45)
[2016-03-27] MEDS: SODIUM CHLORIDE 0.9% FLUSH 5 ML FLUSH IV FLUSH SCH (08:45)
[2016-03-27] MEDS: MAGNESIUM HYDROXIDE SUSP 30 ML CUP PO SCH (08:45)
[2016-03-27 13:14] VITALS: BP 135/69; PULSE 102; RESP 18; TEMP 101; O2SAT 95
[2016-03-27] MEDS ORDERED: NORC5TAB PO (13:52)
--- NOTE | 2016-03-27 16:41 | HHI.DS ---
Discharge Summary Admission Date Mar 24, 2016 at 10:35 Discharge Date: Mar 27, 2016 Admitting Diagnosis trauma alert/right leg severe lacerations/severe anemia Brief History S/P trauma: Fell on a broken mirror and sustained an open 8x5 cm wound of RIGHT thigh. CBC/BMP: 03/26/16 0656 03/26/16 0656 Significant Findings Laboratory Tests Test 03/24/16 03/24/16 03/25/16 03/26/16 17:35 23:10 04:05 06:56 Arterial Blood pH 7.48 (7.380-7.420) Arterial Blood Partial 32 mmHg (38-42) Pressure CO2 Blood Gas Hemoglobin 10.8 G/DL (12.0-16.0) Hemoglobin 11.2 GM/DL 11.1 GM/DL 10.8 GM/DL (13.0-17.0) (13.0-17.0) (13.0-17.0) Hematocrit 31.5 % 32.5 % 31.7 % (39.0-51.0) (39.0-51.0) (39.0-51.0) Sodium Level 146 MEQ/L 146 MEQ/L (136-145) (136-145) Potassium Level 3.4 MEQ/L (3.5-5.1) Chloride Level 111 MEQ/L 112 MEQ/L 108 MEQ/L (98-107) (98-107) (98-107) Blood Urea Nitrogen 20 MG/DL (7-18) 19 MG/DL (7-18) Estimat Glomerular Filtration 61 ML/MIN (>89) 64 ML/MIN (>89) 68 ML/MIN (>89) Rate Random Glucose 155 MG/DL 160 MG/DL 145 MG/DL (74-106) (74-106) (74-106) Calcium Level 7.0 MG/DL 6.9 MG/DL 7.7 MG/DL (8.5-10.1) (8.5-10.1) (8.5-10.1) Protein Corrected Calcium 7.9 MG/DL 7.8 MG/DL (8.5-10.1) (8.5-10.1) Total Protein 5.3 GM/DL 5.4 GM/DL (6.4-8.2) (6.4-8.2) Red Blood Count 3.74 MIL/MM3 3.63 MIL/MM3 (4.50-5.90) (4.50-5.90) Platelet Count 95 TH/MM3 88 TH/MM3 (150-450) (150-450) Neutrophils (%) (Auto) 82.5 % (16.0-70.0) Lymphocytes (%) (Auto) 6.8 % (9.0-44.0) Monocytes (%) (Auto) 9.5 % (0.0-8.0) Lymphocytes # (Auto) 0.6 TH/MM3 (1.0-4.8) Neutrophils % (Manual) 73 % (16-70) Band Neutrophils % 11 % (0-6) Platelet Estimate LOW (NORMAL) Imaging Last Impressions Chest X-Ray 03/25/16 0000 Signed Impressions: Service Date/Time: Friday, March 25, 2016 03:54 - CONCLUSION: 1. Discoid atelectasis left midlung. 2. Support lines and tubes are stable. Indio Patiño MD Pelvis X-Ray 03/24/16 1004 Signed Impressions: Service Date/Time: Thursday, March 24, 2016 10:00 - CONCLUSION: No fracture visualized. The frontal view of the pelvis is limited with motion artifact.. Val Wallace MD Femur X-Ray 03/24/16 0000 Signed Impressions: Service Date/Time: Thursday, March 24, 2016 11:58 - CONCLUSION: No evidence of retained foreign body. Surgical drain overlying the right thigh. Val Wallace MD PE at Discharge GENERAL: 80-year-old well-nourished, well developed male lying in bed. SKIN: Warm and dry. Small laceration noted to bridge of nose. CARDIOVASCULAR: Regular rate and rhythm. RESPIRATORY: No accessory muscle use. Lungs clear to auscultation. Breath sounds equal bilaterally. GASTROINTESTINAL: Abdomen soft, non-tender, nondistended. + BS. MUSCULOSKELETAL: Extremities without cyanosis, or edema. No obvious deformities. Right thigh approximated with sutures intact, mild erythema noted. No drainage. NEUROLOGICAL: Awake and alert. Normal speech. Hospital Course [place]: Patient fell on a broken mirror and sustained an open 8x5 cm wound of RIGHT thigh with hemorrhage. Brief PEA arrest in the trauma bay from hemorrhagic shock and received 1 epi and short course of CPR before ROSC. MTP initiated and patient taken to the OR for exploration. INJURIES: Laceration of the RIGHT superficial femoral vein and artery branches. * 03/24: Exploration RIGHT thigh wound and closure Diet: Regular and tolerating Pulmonary: IS, encouraged patient home use Pain: Tylenol effective. [place] Rx provided. Activity: OOB. PT, OT evaluating. Patient reports he's been ambulating to the bathroom unassisted with a walker. GI: Pepcid IV Bowel: Colace, MOM. DVT: SCD Fevers overnight and one blood culture drawn. Right thigh wound minimal erythema no drainage. Patient to follow up in trauma office in 1-2 weeks.. Patient reports he has a walker at home. Wound care: Wash wound with soap and water. Keep open to air. Report any erythema or drainage. Patient is clear from trauma surgery standpoint to safely discharge home with his . Pt Condition on Discharge: Stable Discharge Disposition: Discharge Home Discharge Instructions DIET: Follow Instructions for: As Tolerated, No Restrictions Activities you can perform: Regular-No Restrictions Artis Nash Mar 27, 2016 16:41
== END 2016-03-27 18:51 | disposition home or self-care (01) | DRG 907 ==
LOC: NEPI 10:02 → NEDA 10:35 → EDBD 10:35 → N03B 14:21 → N05A 03-26 16:21
PROVIDERS: ADMIT Surgery Trauma Surgery; ATTEND Surgery Trauma Surgery
PROC: 5A12012 Performance of Cardiac Output, Single, Manual (ICD-10-PCS; 2016-03-24)
PROC: 06LM0ZZ Occlusion of Right Femoral Vein, Open Approach (ICD-10-PCS; 2016-03-24)
PROC: 5A1935Z Respiratory Ventilation, Less than 24 Consecutive Hours (ICD-10-PCS; 2016-03-24)
PROC: 0BH17EZ Insertion of Endotracheal Airway into Trachea, Via Natural or Artificial Opening (ICD-10-PCS; 2016-03-24)
PROC: 30233N1 Transfusion of Nonautologous Red Blood Cells into Peripheral Vein, Percutaneous Approach (ICD-10-PCS; 2016-03-24)
PROC: 30233R1 Transfusion of Nonautologous Platelets into Peripheral Vein, Percutaneous Approach (ICD-10-PCS; 2016-03-24)
PROC: 30233L1 Transfusion of Nonautologous Fresh Plasma into Peripheral Vein, Percutaneous Approach (ICD-10-PCS; 2016-03-24)
PROC: 30233K1 Transfusion of Nonautologous Frozen Plasma into Peripheral Vein, Percutaneous Approach (ICD-10-PCS; 2016-03-24)
PROC: 04LK0ZZ Occlusion of Right Femoral Artery, Open Approach (ICD-10-PCS; principal; 2016-03-24 10:28)
DX: S75.021A Major laceration of femoral artery, right leg, initial encounter (principal); T79.4XXA Traumatic shock, initial encounter; I46.9 Cardiac arrest, cause unspecified; J96.00 Acute respiratory failure, unspecified whether with hypoxia or hypercapnia; D62 Acute posthemorrhagic anemia; S75.121A Major laceration of femoral vein at hip and thigh level, right leg, initial encounter; S71.111A Laceration without foreign body, right thigh, initial encounter; W18.02XA Striking against glass with subsequent fall, initial encounter
CPT/HCPCS: 31500; 36430; 36600; 71010; 72170; 73551; 73552; 80048; 82435; 82565; 82805; 82947; 82948; 83735; 84100; 84132; 84155; 84295; 84520; 85007; 85014; 85018; 85025; 85027; 85610; 85730; 86850; 86900; 86901; 86920; 86927; 86965; 87040; 87641; 90471; 92950; 94002; 94003; 99291; G0390; J1642; J1644; J2250; J2370; J3010; J7030; J7050; P9016; P9017; P9035